=== PATIENT | male | born 1970 | race Caucasian/White ===

== ENCOUNTER 2019-01-13 07:49 | Emergency (ER) | payer OTHER ==
[~2019-01-13] VITALS: Ht 185.4 cm; Wt 115.8 kg
[2019-01-13] MEDS ORDERED: SERT-141 PO (07:58)
[2019-01-13] MEDS ORDERED: RECT5CRE RC ×2 (10:16→11:06)
[2019-01-13 10:27] VITALS: BP 134/89
== END 2019-01-13 10:30 | disposition home or self-care (01) ==
LOC: M ED 07:49
DX: K64.8 Other hemorrhoids (principal); E11.9 Type 2 diabetes mellitus without complications; K27.9 Peptic ulcer, site unspecified, unspecified as acute or chronic, without hemorrhage or perforation; M25.569 Pain in unspecified knee; G89.29 Other chronic pain; Z88.0 Allergy status to penicillin; Z79.899 Other long term (current) drug therapy